=== PATIENT | female | born 1985 | race Two or more races ===

== ENCOUNTER 2023-05-19 21:51 | Emergency (ER) | payer MEDICAID, OTHER ==
[~2023-05-19] VITALS: Ht 154.9 cm; Wt 118.1 kg
[2023-05-19 22:15] VITALS: BP 150/98; PULSE 98; RESP 20; TEMP 98.4; O2SAT 95
== END 2023-05-20 04:27 | disposition home or self-care (01) ==
LOC: ER 21:51
DX: R04.0 Epistaxis (principal)

== ENCOUNTER 2023-05-23 09:15 | Emergency (ER) | payer MEDICAID ==
[~2023-05-23] VITALS: Ht 154.9 cm; Wt 121.0 kg
[2023-05-23 10:34] VITALS: BP 143/98; PULSE 100; RESP 18; TEMP 97.8; O2SAT 98
== END 2023-05-23 11:23 | disposition home or self-care (01) ==
LOC: ER 09:15
DX: R04.0 Epistaxis (principal)

== ENCOUNTER 2024-10-16 15:43 | Inpatient (IN) | payer MEDICAID ==
[~2024-10-16] VITALS: Ht 154.9 cm; Wt 105.3 kg
--- NOTE | 2024-10-16 16:16 | ED.PDOC ---
GI ASSESSMENT HPI Comments 38 y.o female presents to the ED for a chief complaint of RUQ pain. Patient reports a 4 day history of constipation about a week ago with diffused abdominal pain, states she took enemas which alleviated her constipation and is now passing minimal stool. Patient states pain however is now localized to the RUQ, described as sharp, non radiating and worse on palpation. Patient denies any nausea, vomiting, fever, chills, hematuria, bloody stool, dysuria. She denies any medical history or recent abdominal surgeries. 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 OPERATOR SEATING History Family History Family History: Reviewed,noncontributory to illness, No family hx of Cancer, No family hx of DM, No family hx of Heart tyrone, No family hx of HTN, No family hx ofKidney tyrone, No family hx of Liver tyrone, No family hx of Lung tyrone, No family hx of Stroke Social History Smoker: Non-Smoker Alcohol: Denies ETOH Use Drugs: Denies Drug Use Lives In: Home Constitutional: denies: chills, diaphoresis, fatigue, fever, malaise, sweats, weakness, others EENTM: denies: blurred vision, double vision, ear bleeding, ear discharge, ear drainage, ear pain, ear ringing, eye pain, eye redness, hearing loss, mouth pain, mouth swelling, nasal discharge, nose bleeding, nose congestion, nose pain, photophobia, tearing, throat pain, throat swelling, voice changes, others Respiratory: denies: cough, hemoptysis, orthopnea, SOB at rest, shortness of breath, SOB with excertion, stridor, wheezing, others Cardiovascular: denies: chest pain, dizzy spells, diaphoresis, Dyspnea on exertion, edema, irregular heart beat, left arm pain, lightheadedness, palpitations, PND, syncope, others Gastrointestinal: reports: abdominal pain, constipated; denies: abdomen distended, blood streaked bowels, diarrhea, dysphagia, difficulty swallowing, hematemesis, melena, nausea, poor appetite, poor fluid intake, rectal bleeding, rectal pain, vomiting, others Genitourinary: denies: abnormal vagina bleeding, burning, dyspareunia, dysuria, flank pain, frequency, hematuria, incontinence, pain, , vagina discharge, urgency, others Neurological: denies: dizziness, fainting, headache, left sided numbness, left sided weakness, numbness, paresthesia, pre-existing deficit, right sided numbness, right sided weakness, seizure, speech problems, tingling, tremors, weakness, others Musculoskeletal: denies: back pain, gout, joint pain, joint swelling, muscle pain, muscle stiffness, neck pain, others Integumetry: denies: bruises, change in color, change in hair/nails, dryness, laceration, lesions, lumps, rash, wounds, others Allergic/Immunocompromised: denies: Difficulty Healing, Frequent Infections, Hives, Itching, others Hematologic/Lymphatic: denies: anemia, blood clots, easy bleeding, easy bruising, swollen glands, others Endocrine: denies: excessive hunger, excessive sweating, excessive thirst, excessive urination, flushing, intolerance to cold, intolerance to heat, unexplained weight gain, unexplained weight loss, others Psychiatric: denies: anxiety, bipolar disorder, depression, hopeless, panic disorder, schizophrenia, sleepless, suicidal, others All Other Systems: Reviewed and Negative Physical Exam General Appearance: Moderate Distress HEENT: Normal ENT Inspection, Pharynx Normal, TMs Normal Neck: Full Range of Motion, Non-Tender, Normal, Normal Inspection Respiratory: Chest Non-Tender, Lungs Clear, No Accessory Muscle Use, No Respiratory Distress, Normal Breath Sounds Cardiovascular: No Edema, No JVD, No Murmur, No Gallop, Normal Peripheral Pulses, Regular Rate/Rhythm Breast Exam: Deferred Gastrointestinal: No Organomegaly, Non Tender, No Pulsatile Mass, Normal Bowel Sounds, Soft Genitalia: Deferred Pelvic: Deferred Rectal: Deferred Extremities: No calf tenderness, Normal capillary refill, Normal inspection, Normal range of motion, Non-tender, No pedal edema Musculoskeletal : Apperance: Normal Neurologic: Alert, final dressing cutter II-XII nml as Tested, No Motor Deficits, Normal Affect, Normal Mood, No Sensory Deficits Cerebellar Function: Normal Reflexes: Normal Skin: Dry, Normal Color, Warm Peripheral Pulses: 3+ Radial (R), 3+ Radial (L) Lymphatic: No Adenopathy Was a procedure done? Was a procedure done?: No GI differential Dx Differential Diagnosis: Cholecystitis, Constipation, Diverticular disease, Esophagitis, Gastritis/PUD, Gastroenteritis, Inflammatory BD, Electrolyte Imbalance, Viral X-Ray, Labs, Meds, VS Vital Signs Date Time Temp Pulse Resp B/P (MAP) Pulse Ox O2 Delivery O2 Flow Rate FiO2 10/16/24 16:56 98.8 115 16 115/66 (82) 98 98.8 Lab Test 10/16/24 16:22 Range/Units White Blood Count 23.9 H 4.4-10.8 10^3/uL Red Blood Count 4.12 4.0-5.20 10^6/uL Hemoglobin 13.1 12.2-16.2 g/dL Hematocrit 38.7 36.0-46.0 % Mean Corpuscular Volume 93.9 80.0-100.0 fL Mean Corpuscular Hemoglobin 31.8 28.0-32.0 pg Mean Corpuscular Hemoglobin Concent 33.8 32.0-36.0 g/dL Red Cell Distribution Width 14.0 11.8-14.3 % Platelet Count 408 140-450 10^3/uL Mean Platelet Volume 8.3 6.9-10.8 fL Neutrophils (%) (Auto) 82.5 H 37.0-80.0 % Lymphocytes (%) (Auto) 9.2 L 10.0-50.0 % Monocytes (%) (Auto) 7.7 0.0-12.0 % Eosinophils (%) (Auto) 0.2 0.0-7.0 % Basophils (%) (Auto) 0.4 0.0-2.0 % Neutrophils # (Auto) 19.7 H 1.6-8.6 10 ^3/uL Lymphocytes # (Auto) 2.2 0.4-5.4 10 ^3/uL Monocytes # (Auto) 1.8 H 0-1.3 10 ^3/uL Eosinophils # (Auto) 0 0-0.8 10 ^3/uL Basophils # (Auto) 0.1 0-0.2 10 ^3/uL Nucleated Red Blood Cells 0.0 % Sodium Level 138 136-145 mmol/L Potassium Level 3.5 3.5-5.1 mmol/L Chloride Level 104 98-107 mmol/L Carbon Dioxide Level 22 20-31 mmol/L Anion Gap 12 5-15 Blood Urea Nitrogen 9 9-23 mg/dL Creatinine 0.64 0.550-1.02 mg/dL Glomerular Filtration Rate Calc 117 >90 mL/min BUN/Creatinine Ratio 14.1 10.0-20.0 Serum Glucose 101 74-106 mg/dL Calcium Level 9.9 8.7-10.4 mg/dL Patient alert. Complaining of abdominal discomfort. Abdomen is soft nontender. Vitals stable. Ambulating. No sign of distress. No sepsis. No leg swelling. No chest pain. No nausea vomiting. Possible sepsis. WBC elevated. Establish intravenous access. Was given fluids. Was given Rocephin. Was given Flagyl. Explained to the patient. Continue monitoring. Time of 1ST Reevaluation: 16:16 Reevaluation 1ST: Improved Patient Education/Counseling: Diagnosis, Treatment, Prognosis Family Education/Counseling: No Family Present Departure 1 Departure Time of Disposition: 16:20 Impression: Primary Impression: Sepsis, unspecified organism Qualified Codes: A41.9 - Sepsis, unspecified organism Additional Impression: Acute abdominal pain Disposition: ADMITTED INPATIENT Admit to: Med Surg Condition: Guarded Critical Care Note Critical Care Time?: No Stability Stability form required: No Heart Score Heart Score: Heart Score Response (Comments) Value History N/A 0 EKG N/A 0 Age N/A 0 Risk Factors N/A 0 Troponin N/A 0 Total 0 I personally scribed for ISAAC PIZARRO MD ([email or web address]) on 10/16/24 at 16:16. Electronically submitted by Wendy Colbert ([facility]). ISAAC PIZARRO MD Oct 16, 2024 16:16
[2024-10-16 16:35] LABS: Basophils # (auto) 0.1 10 ^3/uL (0-0.2); Basophils % (auto) 0.4 % (0.0-2.0); Eosinophils # (auto) 0 10 ^3/uL (0-0.8); Eosinophils % (auto) 0.2 % (0.0-7.0); Hematocrit 38.7 % (36.0-46.0); Hemoglobin 13.1 g/dL (12.2-16.2); Lymphocytes # (auto) 2.2 10 ^3/uL (0.4-5.4); Lymphocytes % (auto) 9.2 % (10.0-50.0); Mean Corpuscular Hemoglobin 31.8 pg (28.0-32.0); Mean Corpuscular Hgb Conc. 33.8 g/dL (32.0-36.0); Mean Corpuscular Volume 93.9 fL (80.0-100.0); Monocytes # (auto) 1.8 10 ^3/uL (0-1.3); Monocytes % (auto) 7.7 % (0.0-12.0); Neutrophils # (auto) 19.7 10 ^3/uL (1.6-8.6); Neutrophils % (auto) 82.5 % (37.0-80.0); Platelet Count (auto) 408 10^3/uL (140-450); Red Blood Cells 4.12 10^6/uL (4.0-5.20); White Blood Cell 23.9 10^3/uL (4.4-10.8)
[2024-10-16 16:45] LABS: Anion Gap 12 (5-15); Carbon Dioxide 22 mmol/L (20-31); Chloride 104 mmol/L (98-107); Sodium 138 mmol/L (136-145)
[2024-10-16 16:46] LABS: Calcium 9.9 mg/dL (8.7-10.4); Potassium 3.5 mmol/L (3.5-5.1)
[2024-10-16 16:51] LABS: BUN/Creatinine Ratio 14.1 (10.0-20.0); Blood Urea Nitrogen 9 mg/dL (9-23); Glucose 101 mg/dL (74-106)
[2024-10-16] MEDS: SODIUM CHLORIDE 0.9% 1,000 ML IV ONE ×2 (17:50→17:57)
[2024-10-16] MEDS: cefTRIAXone 1GM/50ML D5W 50 ML IV ONE (18:21)
[2024-10-16 18:49] LABS: Urine Amorphous Crystal FEW /hpf (None Seen); Urine Bacteria FEW /hpf (None Seen); Urine Blood Negative /uL (Negative); Urine Clarity Turbid (Clear); Urine Color Colorless (Yellow); Urine Protein, UAD Negative (Negative); Urine Specific Gravity 1.004 (1.001-1.035); Urine Squamous Epithelial Cell FEW /hpf (<5); Urine Urobilinogen Normal (Negative); Urine WBC 14 /HPF (0-5)
[2024-10-16] MEDS: metroNIDAZOLE 500MG/100ML 100 ML IV ONE (19:04)
--- NOTE | 2024-10-16 20:04 | DVH ---
CLINICAL HISTORY: appy TECHNIQUE: CT of the abdomen and pelvis was performed without intravenous contrast. This exam was per formed according to our departmental dose optimization program. Up-to-date CT equipment and radiation dose reduction techniques are utilized as appropriate. CTDI: 25.59 DLP: 1305.15 WID: COMPARISON: None FINDINGS: Lower Thorax: Unremarkable. Liver and Biliary system: Hepatomegaly with the right lobe of the liver measuring 21 cm craniocaudal. Otherwise unremarkable. Spleen: Unremarkable. Adrenal Glands and Kidneys: Unremarkable. Pancreas and Retroperitoneum: Mild Pancreatic atrophy. No retroperitoneal lymphadenopathy. Aorta and Major Vessels: Aortoiliac vessels are normal in caliber with trace calcified atheroscleroti c plaque. Bowel, Mesentery and Peritoneal space: Normal caliber small and large bowel. There is a multiloculate d fluid and gas collection in the right lower quadrant measuring at least 8.3 x 8.5 x 10.3 cm on seri es 2, image 58 and coronal image 58. There is soft tissue stranding surrounding this loculated fluid collection in the right lower quadrant. There is mild wall thickening of the ascending colon. There i s no free intraperitoneal air. Pelvis: There is an IUD in the uterus which appears low-lying. There is a large multiloculated cystic mass which appears to be contiguous with the right ovary with the more central portion of the cystic mass measuring 15.7 x 11.9 cm on series 2, image 54. Grossly normal left ovary. Urinary bladder is m ildly distended. There is no pelvic lymphadenopathy. Abdominal wall and Osseous Structures: Grade 1 anterolisthesis at L5-S1 with bilateral L5 spondylolys is. Minor lower thoracic and lumbar spondylosis. No destructive osseous lesion. IMPRESSION: 1. Multiloculated fluid and gas collection in the right lower quadrant most likely an abscess, favore d to be a complication of appendicitis. No generalized free intraperitoneal air. 2. Large cystic mass which appears contiguous with the right ovary. It is possible that this could al so be an additional abscess. Short-term follow-up CT recommended after appropriate course of therapy for the right lower quadrant abscess. If this finding persists, OBGYN surgical consultation recomme nded. 3. Mild hepatomegaly. 4. IUD in the uterus appears malpositioned/ low-lying.
[2024-10-16] MEDS ORDERED: ACETAMINOPHEN 325 MG TAB PO PRN (21:45)
[2024-10-16] MEDS: PIPERACILLIN-TAZO 4.5GM 100 ML IV SCH (22:15)
[2024-10-16 22:17] VITALS: TEMP 98.4
[2024-10-16 22:19] VITALS: PULSE 105; RESP 15; O2SAT 98
[2024-10-16 22:22] LABS: Triglycerides 77 mg/dL (< 150)
[2024-10-16 22:23] LABS: LDL Cholesterol 90 mg/dL (< 100)
[2024-10-16 22:24] LABS: Cholesterol 136 mg/dL (< 200)
[2024-10-16 22:25] LABS: HDL Cholesterol 26 mg/dL (40-59)
--- NOTE | 2024-10-16 22:26 | DVHINCON2 ---
Consultation - Surgical Date Seen: Oct 16, 2024 Referring Physician Reason for Consultation abd pain, possible ruptured appendicitis History of Present Illness History of Present Illness rlq and ruq abd pain, constipation, naiusea; took enema w minor relief but pain returned Past Medical/Surgical History Past Medical/Surgical History none Family and Social History Family and Social History no tob, etoh, drugs no fam hx of cancer Allergies and medications Allergies: Coded Allergies: NO KNOWN ALLERGIES (Unverified , 05/20/23) Review of systems Review of Systems: HEENT:Normal, CVS:Normal, RESPIRATORY:Normal, GI:Abnormal (abd pain, con stipation), :Normal, MSK:Normal, NEURO:Normal Examination Vital signs Vital Signs Date Time Temp Pulse Resp B/P (MAP) Pulse Ox O2 Delivery O2 Flow Rate FiO2 10/16/24 20:25 98.9 100 17 135/79 (97) 99 98.9 10/16/24 18:15 Room Air Laboratory Labs Test 10/16/24 18:41 10/16/24 17:27 10/16/24 16:22 Range/Units Urine Color Colorless Yellow Urine Clarity Turbid H Clear Urine pH 6.0 5.0-9.0 Urine Specific [place] 1.004 1.001-1.035 Urine Protein Negative Negative Urine Ketones 1+ H Negative Urine Blood Negative Negative /uL Urine Nitrite Negative Negative Urine Bilirubin Negative Negative Urine Urobilinogen Normal Negative mg/dL Urine Leukocyte Esterase 2+ Negative /uL Urine RBC 3 0 - 4 /hpf Urine Microscopic WBC 14 H 0-5 /HPF Urine Squamous Epithelial Cells Few <5 /hpf Urine Amorphous Crystals Few None Seen /hpf Urine Bacteria Few H None Seen /hpf Urine Glucose Normal Normal mg/dL Urine Test Negative Negative Lactic Acid Level 1.0 0.4-2.0 mmol/L White Blood Count 23.9 H 4.4-10.8 10^3/uL Red Blood Count 4.12 4.0-5.20 10^6/uL Hemoglobin 13.1 12.2-16.2 g/dL Hematocrit 38.7 36.0-46.0 % Mean Corpuscular Volume 93.9 80.0-100.0 fL Mean Corpuscular Hemoglobin 31.8 28.0-32.0 pg Mean Corpuscular Hemoglobin Concent 33.8 32.0-36.0 g/dL Red Cell Distribution Width 14.0 11.8-14.3 % Platelet Count 408 140-450 10^3/uL Mean Platelet Volume 8.3 6.9-10.8 fL Neutrophils (%) (Auto) 82.5 H 37.0-80.0 % Lymphocytes (%) (Auto) 9.2 L 10.0-50.0 % Monocytes (%) (Auto) 7.7 0.0-12.0 % Eosinophils (%) (Auto) 0.2 0.0-7.0 % Basophils (%) (Auto) 0.4 0.0-2.0 % Neutrophils # (Auto) 19.7 H 1.6-8.6 10 ^3/uL Lymphocytes # (Auto) 2.2 0.4-5.4 10 ^3/uL Monocytes # (Auto) 1.8 H 0-1.3 10 ^3/uL Eosinophils # (Auto) 0 0-0.8 10 ^3/uL Basophils # (Auto) 0.1 0-0.2 10 ^3/uL Nucleated Red Blood Cells 0.0 % Sodium Level 138 136-145 mmol/L Potassium Level 3.5 3.5-5.1 mmol/L Chloride Level 104 98-107 mmol/L Carbon Dioxide Level 22 20-31 mmol/L Anion Gap 12 5-15 Blood Urea Nitrogen 9 9-23 mg/dL Creatinine 0.64 0.550-1.02 mg/dL Glomerular Filtration Rate Calc 117 >90 mL/min BUN/Creatinine Ratio 14.1 10.0-20.0 Serum Glucose 101 74-106 mg/dL Calcium Level 9.9 8.7-10.4 mg/dL Triglycerides Level 77 < 150 mg/dL Cholesterol Level 136 < 200 mg/dL LDL Cholesterol 90 < 100 mg/dL HDL Cholesterol 26 L 40-59 mg/dL Examination: GENERAL:Normal, HEENT:Normal, NECK:Normal, LUNGS:Normal, CVS:Normal, ABDOMEN:Normal, MSK:Normal, SKIN:Normal, NEURO:Normal Problem List/Assessment/Plan Problems: (1) Ovarian cystic mass (2) Perforated appendicitis (3) Acute abdominal pain (4) Sepsis, unspecified organism Assessment and Plan 38f w abd pain, nausea and constipation wbc 24, low grade fever, tachycardia ct shows suspected perforated appendix w adjacent abscess and large ovarian space occupying cystic mass off unknown origin, but CT done w/o IV contrast making it a suboptimal study recommend CT w IV cont for ongoing w/u recommend obgyn consult will discuss w IR patti am for IR drainage vs surgery, will need obgyn input prior Laboratory Tests Test 10/16/24 16:22 10/16/24 17:27 10/16/24 18:41 10/17/24 05:39 Range/Units White Blood Count 23.9 H 22.2 H 4.4-10.8 10^3/uL Red Blood Count 4.12 3.64 L 4.0-5.20 10^6/uL Hemoglobin 13.1 11.7 L 12.2-16.2 g/dL Hematocrit 38.7 34.1 #L 36.0-46.0 % Mean Corpuscular Volume 93.9 93.7 80.0-100.0 fL Mean Corpuscular Hemoglobin 31.8 32.1 H 28.0-32.0 pg Mean Corpuscular Hemoglobin Concent 33.8 34.3 32.0-36.0 g/dL Red Cell Distribution Width 14.0 13.8 11.8-14.3 % Platelet Count 408 373 140-450 10^3/uL Mean Platelet Volume 8.3 8.4 6.9-10.8 fL Neutrophils (%) (Auto) 82.5 H 82.3 H 37.0-80.0 % Lymphocytes (%) (Auto) 9.2 L 8.3 L 10.0-50.0 % Monocytes (%) (Auto) 7.7 8.9 0.0-12.0 % Eosinophils (%) (Auto) 0.2 0.3 0.0-7.0 % Basophils (%) (Auto) 0.4 0.2 0.0-2.0 % Neutrophils # (Auto) 19.7 H 18.2 H 1.6-8.6 10 ^3/uL Lymphocytes # (Auto) 2.2 1.8 0.4-5.4 10 ^3/uL Monocytes # (Auto) 1.8 H 2.0 H 0-1.3 10 ^3/uL Eosinophils # (Auto) 0 0.1 0-0.8 10 ^3/uL Basophils # (Auto) 0.1 0.1 0-0.2 10 ^3/uL Nucleated Red Blood Cells 0.0 0.0 % Sodium Level 138 136-145 mmol/L Potassium Level 3.5 3.5-5.1 mmol/L Chloride Level 104 98-107 mmol/L Carbon Dioxide Level 22 20-31 mmol/L Anion Gap 12 5-15 Blood Urea Nitrogen 9 9-23 mg/dL Creatinine 0.64 0.550-1.02 mg/dL Glomerular Filtration Rate Calc 117 >90 mL/min BUN/Creatinine Ratio 14.1 10.0-20.0 Serum Glucose 101 74-106 mg/dL Hemoglobin A1c 5.0 <5.7 % A1C Calcium Level 9.9 8.7-10.4 mg/dL Triglycerides Level 77 < 150 mg/dL Cholesterol Level 136 < 200 mg/dL LDL Cholesterol 90 < 100 mg/dL HDL Cholesterol 26 L 40-59 mg/dL Lactic Acid Level 1.0 0.4-2.0 mmol/L Urine Color Colorless Yellow Urine Clarity Turbid H Clear Urine pH 6.0 5.0-9.0 Urine Specific [place] 1.004 1.001-1.035 Urine Protein Negative Negative Urine Ketones 1+ H Negative Urine Blood Negative Negative /uL Urine Nitrite Negative Negative Urine Bilirubin Negative Negative Urine Urobilinogen Normal Negative mg/dL Urine Leukocyte Esterase 2+ Negative /uL Urine RBC 3 0 - 4 /hpf Urine Microscopic WBC 14 H 0-5 /HPF Urine Squamous Epithelial Cells Few <5 /hpf Urine Amorphous Crystals Few None Seen /hpf Urine Bacteria Few H None Seen /hpf Urine Glucose Normal Normal mg/dL Urine Test Negative Negative Urine Opiates Screen Neg NEGATIVE Urine Fentanyl Screen Neg NEGATIVE Urine Barbiturates Screen Neg NEGATIVE Urine Phencyclidine Screen Neg NEGATIVE Urine Amphetamines Screen Neg NEGATIVE Urine Benzodiazepines Screen Neg NEGATIVE Urine Cocaine Screen Neg NEGATIVE Urine Cannabinoids Screen Pos NEGATIVE Vital Signs Date Time Temp Pulse Resp B/P (MAP) Pulse Ox O2 Delivery O2 Flow Rate FiO2 10/17/24 06:11 94 15 127/58 (81) 97 10/16/24 22:19 Room Air* 0 21 10/16/24 22:17 98.4 98.4 Plan discussed with Plan discussed with: Other (residenct physician) Visit Coding Surgery Date of Service if different f: Oct 16, 2024 Billing Provider: MARISELA PATEL MD Surgery Visit Codes: 53686 - INP CONSULT <40 MIN MARISELA PATEL MD Oct 16, 2024 22:26
[2024-10-16 22:29] LABS: Cannabinoid Screen, Urine Pos (NEGATIVE)
[2024-10-16 22:31] LABS: Amphetamine Screen, Urine Neg (NEGATIVE); Barbiturate Scree,Urine Neg (NEGATIVE); Benzodiazephine Screen, Urine Neg (NEGATIVE); Cocaine Screen, Urine Neg (NEGATIVE); Opiate Scree,Urine Neg (NEGATIVE); Phencyclidine Screen, Urine Neg (NEGATIVE)
[2024-10-16] MEDS: OMNIPAQUE 12mg/ml 500ml ORAL SOLUTION PO ONE (22:33)
--- NOTE | 2024-10-16 22:47 | DVHCONRES ---
Date Seen: Oct 16, 2024 Resident Creating Document: ELIAZAR BEACH RESIDENT Referring Physician Dr. Coello Reason for Consultation Large cystic mass and appendiceal abscess History of Present Illness This is a 38-year-old female with no past medical history of relevance who takes no medications at home. The patient presented to the ED with chief complaint of acute right lower quadrant abdominal tenderness. The patient stated that all her symptoms started on September 29, 2024 when she started experiencing diffuse abdominal tenderness associated with constipation. Patient also admits chills at that time and started taking milk of magnesium and enemas which started improving constipation and the severity of the pain was mild at that time. The patient states that the pain has been constant in nature but varies in intensity throughout the day. The patient is currently described a sharp/cramping pain ra nia as 5/10 on the pain scale but gets worse until an 8/10 on the pain scale. The patient denies fever, chest pain, shortness of breath, dysuria or any other symptoms at this time. Initial labs showed a WBC of 23.9, BNP was grossly unremarkable and urinalysis came back positive suggesting UTI. Initial CT of the abdomen without contrast showed a multiloculated fluid and gas collection in the right lower quadrant with an abscess which could be possibly associated with complicated appendicitis, there was no generalized free intraperitoneal air. There is also a large cystic mass which appears contiguous with the right ovary which could represent an additional abscess. We will start the patient on IV Zosyn and fluids, place the patient NPO. We will consult surgery and OBGYN. We will admit the patient for further assessment and management. Past Medical History none Past Surgical History none Family History denies Social History denies alcohol, drugs or smoking Allergies: Coded Allergies: NO KNOWN ALLERGIES (Unverified , 05/20/23) Review of Systems ROS Constitutional: Denies weight loss, fever and chills. HEENT: Denies changes in vision and hearing. Respiratory: Denies shortness of breath and cough Cardiovascular: Denies chest discomfort or palpitations GI: Reports right lower quadrant abdominal tenderness associated with constipation. : Denies dysuria and urinary frequency. Musculoskeletal: Denies myalgias and joint pain Skin: Denies rash and pruritus. Neurological: Denies dizziness, headache, vision or hearing problems Vital Signs Vital Signs Date Time Temp Pulse Resp B/P (MAP) Pulse Ox O2 Delivery O2 Flow Rate FiO2 10/16/24 20:25 98.9 100 17 135/79 (97) 99 98.9 10/16/24 18:15 Room Air Labs/Diagnostic Data Labs Test 10/16/24 18:41 10/16/24 17:27 10/16/24 16:22 Range/Units Urine Color Colorless Yellow Urine Clarity Turbid H Clear Urine pH 6.0 5.0-9.0 Urine Specific [place] 1.004 1.001-1.035 Urine Protein Negative Negative Urine Ketones 1+ H Negative Urine Blood Negative Negative /uL Urine Nitrite Negative Negative Urine Bilirubin Negative Negative Urine Urobilinogen Normal Negative mg/dL Urine Leukocyte Esterase 2+ Negative /uL Urine RBC 3 0 - 4 /hpf Urine Microscopic WBC 14 H 0-5 /HPF Urine Squamous Epithelial Cells Few <5 /hpf Urine Amorphous Crystals Few None Seen /hpf Urine Bacteria Few H None Seen /hpf Urine Glucose Normal Normal mg/dL Urine Test Negative Negative Urine Opiates Screen Neg NEGATIVE Urine Fentanyl Screen Neg NEGATIVE Urine Barbiturates Screen Neg NEGATIVE Urine Phencyclidine Screen Neg NEGATIVE Urine Amphetamines Screen Neg NEGATIVE Urine Benzodiazepines Screen Neg NEGATIVE Urine Cocaine Screen Neg NEGATIVE Urine Cannabinoids Screen Pos NEGATIVE Lactic Acid Level 1.0 0.4-2.0 mmol/L White Blood Count 23.9 H 4.4-10.8 10^3/uL Red Blood Count 4.12 4.0-5.20 10^6/uL Hemoglobin 13.1 12.2-16.2 g/dL Hematocrit 38.7 36.0-46.0 % Mean Corpuscular Volume 93.9 80.0-100.0 fL Mean Corpuscular Hemoglobin 31.8 28.0-32.0 pg Mean Corpuscular Hemoglobin Concent 33.8 32.0-36.0 g/dL Red Cell Distribution Width 14.0 11.8-14.3 % Platelet Count 408 140-450 10^3/uL Mean Platelet Volume 8.3 6.9-10.8 fL Neutrophils (%) (Auto) 82.5 H 37.0-80.0 % Lymphocytes (%) (Auto) 9.2 L 10.0-50.0 % Monocytes (%) (Auto) 7.7 0.0-12.0 % Eosinophils (%) (Auto) 0.2 0.0-7.0 % Basophils (%) (Auto) 0.4 0.0-2.0 % Neutrophils # (Auto) 19.7 H 1.6-8.6 10 ^3/uL Lymphocytes # (Auto) 2.2 0.4-5.4 10 ^3/uL Monocytes # (Auto) 1.8 H 0-1.3 10 ^3/uL Eosinophils # (Auto) 0 0-0.8 10 ^3/uL Basophils # (Auto) 0.1 0-0.2 10 ^3/uL Nucleated Red Blood Cells 0.0 % Sodium Level 138 136-145 mmol/L Potassium Level 3.5 3.5-5.1 mmol/L Chloride Level 104 98-107 mmol/L Carbon Dioxide Level 22 20-31 mmol/L Anion Gap 12 5-15 Blood Urea Nitrogen 9 9-23 mg/dL Creatinine 0.64 0.550-1.02 mg/dL Glomerular Filtration Rate Calc 117 >90 mL/min BUN/Creatinine Ratio 14.1 10.0-20.0 Serum Glucose 101 74-106 mg/dL Hemoglobin A1c 5.0 <5.7 % A1C Calcium Level 9.9 8.7-10.4 mg/dL Triglycerides Level 77 < 150 mg/dL Cholesterol Level 136 < 200 mg/dL LDL Cholesterol 90 < 100 mg/dL HDL Cholesterol 26 L 40-59 mg/dL Assessment Assessment/Plan Acute right lower quadrant abdominal tenderness likely due to appendiceal abscess Possible complicated appendicitis with abscess formation Large cystic mass likely contiguous with the right ovary Acute constipation Plan -Gave IV zosyn, IV fluids -CT abdomen and pelvis revealing a multiloculated fluid and gas collection in the right lower quadrant most likely due to an abscess possibly complication of appendicitis. There was also a large cystic mass which appears contiguous with the right ovary -OBGYN recommended transfer to higher level of care for cystic mass management Plan discussed with: Patient ELIAZAR BEACH RESIDENT Oct 16, 2024 22:47
[2024-10-16] MEDS: IOHEXOL 300 MG/ML 100ML BOTTLE IJ ONE (23:24)
[2024-10-17] MEDS: SODIUM CHLORIDE 0.9% 1,000 ML IV SCH
--- NOTE | 2024-10-17 00:03 | DVH ---
Exam: CT CT ABD PELVIS W CON-ORAL IV History: large cystic mass and poss appendiceal abscess COMPARISON: CT abdomen and pelvis from earlier today. Technique: Multidetector spiral CT of the abdomen and pelvis was performed from lung bases to pubic s ymphysis. Intravenous contrast was administered during this examination. Portal venous imaging was obtained. Axial, coronal and sagittal multiplanar reformats were performed by the technologist on a separate workstation. Radiation Dose : 1. Abdomen/Pelvis: CTDIvol 25 mGy, DLP 1544 mGy*cm. CONTRAST: Type of contrast: Omnipaque 350 Contrast injected: 100 ml Findings: Lung Bases: No acute or significant lung base finding. Normal heart size. No pleural or pericardial effusion. Liver: Hepatomegaly measuring up to 21 cm. Gallbladder and Biliary Tree: Unremarkable Spleen: Unremarkable Pancreas: The pancreas is normal in appearance without focal lesions or abnormal enhancement. Adrenal Glands: Unremarkable Kidneys: No hydronephrosis. Bladder: Unremarkable Bowel: The stomach is grossly normal in appearance. Small bowel and colon are normal in caliber and d istribution. The appendix is not clearly identified, possibly ruptured due to adjacent abscess. Ascites: Stable complex abscess in the right lower quadrant (periappendiceal region) which measures u p to 8.6 cm. Lymphadenopathy: No mesenteric, retroperitoneal or periportal lymphadenopathy. Abdominal Wall and Mesentery: Unremarkable. Vasculature: The visualized abdominal aorta is normal in size and caliber. Abdominal and pelvic vess els demonstrate normal enhancement. Pelvic Organs: Stable large cystic mass is seen adjacent to the right ovary which measures up to 17 c m. Stable IUD. Musculoskeletal: No aggressive focal bony lesions, acute fractures or dislocation. 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 Stable large cystic mass is seen adjacent to the right ovary which measures up to 17 cm 2. Stable complex abscess in the right lower quadrant (periappendiceal region )which measures up to 8 .6 cm. The appendix is not clearly identified and may be ruptured. 3. Overall, no significant interval change since prior CT from earlier today. Radiation optimization: All CT scans at this facility use at least one of these dose optimization jose j hniques: automated exposure control mA and/or kV adjustment per patient size (includes targeted exam s where dose is matched to clinical indication) or iterative reconstruction.
[2024-10-17 06:11] VITALS: BP 127/58; PULSE 94; RESP 15; O2SAT 97
[2024-10-17 06:38] LABS: Basophils # (auto) 0.1 10 ^3/uL (0-0.2); Basophils % (auto) 0.2 % (0.0-2.0); Eosinophils # (auto) 0.1 10 ^3/uL (0-0.8); Eosinophils % (auto) 0.3 % (0.0-7.0); Hematocrit 34.1 % (36.0-46.0); Hemoglobin 11.7 g/dL (12.2-16.2); Lymphocytes # (auto) 1.8 10 ^3/uL (0.4-5.4); Lymphocytes % (auto) 8.3 % (10.0-50.0); Mean Corpuscular Hemoglobin 32.1 pg (28.0-32.0); Mean Corpuscular Hgb Conc. 34.3 g/dL (32.0-36.0); Mean Corpuscular Volume 93.7 fL (80.0-100.0); Monocytes % (auto) 8.9 % (0.0-12.0); Neutrophils # (auto) 18.2 10 ^3/uL (1.6-8.6); Neutrophils % (auto) 82.3 % (37.0-80.0); Platelet Count (auto) 373 10^3/uL (140-450); Red Blood Cells 3.64 10^6/uL (4.0-5.20); Red Cell Distribution Width 13.8 % (11.8-14.3); White Blood Cell 22.2 10^3/uL (4.4-10.8)
== END 2024-10-17 06:45 | disposition left against medical advice (07) | DRG 720 ==
LOC: ER 15:53 → OVERFLOW 21:45
PROVIDERS: ADMIT Nurse Practitioner Acute Care; ATTEND Nurse Practitioner Acute Care
DX: A41.9 Sepsis, unspecified organism (principal); K35.33 Acute appendicitis with perforation, localized peritonitis, and gangrene, with abscess; Z53.29 Procedure and treatment not carried out because of patient's decision for other reasons; E78.5 Hyperlipidemia, unspecified; N83.201 Unspecified ovarian cyst, right side; K59.00 Constipation, unspecified; Z79.899 Other long term (current) drug therapy
CPT/HCPCS: 36415; 74176; 74177; 80048; 80061; 80307; 81001; 81025; 83036; 83605; 85025; 87040; 87086; 96365; G0378; J2543; J3490

== ENCOUNTER 2024-11-22 16:28 | Emergency (ER) | payer MEDICAID ==
[~2024-11-22] VITALS: Ht 177.8 cm; Wt 99.7 kg
[2024-11-22 17:30] VITALS: BP 118/74; PULSE 86; RESP 17; TEMP 98.1; O2SAT 99
--- NOTE | 2024-11-22 18:36 | ED.PDOC ---
History of Present Illness HPI Comments 39 year old female came to ER for tube replacement. Patient underwent appendectomy due to ruptured appendicitis with intraabd abscess at [facility] October 20. MURPHY drain was inserted and patient was discharged. Yesterday she noted that the sutures appeard to be loose, so she went to [facility] and the drain was re- secured with sutures. About 2 hours ago, patient states she noted that the black marker at the MURPHY drain appeared, indicating that it has moved, and that the drain stopped suctioning. No acute abdominal pain or fever noted. No fluid drainage from around the insertion site. Chief Complaint: Tube Replacement Time Seen by MD: 18:36 Primary Care Provider: SHANE Fonseca Notes: Nurses Notes Allergies: Coded Allergies: NO KNOWN ALLERGIES (Unverified , 05/20/23) Information Source: Patient Mode of Arrival: Ambulatory Severity: Moderate Timing: Hours Duration: Since onset Prehospital treatment: None Past Medical History PAST MEDICAL HISTORY: Denies Surgical History: Appendectomy SOFTWARE QUALITY TESTER History: No Pertinent SOFTWARE QUALITY TESTER History Family History Family History: Reviewed,noncontributory to illness, No family hx of Cancer, No family hx of DM, No family hx of Heart tyrone, No family hx of HTN, No family hx ofKidney tyrone, No family hx of Liver tyrone, No family hx of Lung tyrone, No family hx of Stroke Social History Smoker: Non-Smoker Alcohol: Denies ETOH Use Drugs: Denies Drug Use Lives In: Home Constitutional: denies: chills, diaphoresis, fatigue, fever, malaise, sweats, weakness, others EENTM: denies: blurred vision, double vision, ear bleeding, ear discharge, ear drainage, ear pain, ear ringing, eye pain, eye redness, hearing loss, mouth pain, mouth swelling, nasal discharge, nose bleeding, nose congestion, nose pain, photophobia, tearing, throat pain, throat swelling, voice changes, others Respiratory: denies: cough, hemoptysis, orthopnea, SOB at rest, shortness of breath, SOB with excertion, stridor, wheezing, others Cardiovascular: denies: chest pain, dizzy spells, diaphoresis, Dyspnea on exertion, edema, irregular heart beat, left arm pain, lightheadedness, palpit ations, PND, syncope, others Gastrointestinal: reports: abdominal pain (JP[facility]rain [facility]); denies: abdomen distended, blood streaked bowels, constipated, diarrhea, dysphagia, difficulty swallowing, hematemesis, melena, nausea, poor appetite, poor fluid intake, rectal bleeding, rectal pain, vomiting, others Genitourinary: denies: abnormal vagina bleeding, burning, dyspareunia, dysuria, flank pain, frequency, hematuria, incontinence, pain, , vagina discharge, urgency, others Neurological: denies: dizziness, fainting, headache, left sided numbness, left sided weakness, numbness, paresthesia, pre-existing deficit, right sided numbness, right sided weakness, seizure, speech problems, tingling, tremors, weakness, others Musculoskeletal: denies: back pain, gout, joint pain, joint swelling, muscle pain, muscle stiffness, neck pain, others Integumetry: denies: bruises, change in color, change in hair/nails, dryness, laceration, lesions, lumps, rash, wounds, others Allergic/Immunocompromised: denies: Difficulty Healing, Frequent Infections, Hives, Itching, others Hematologic/Lymphatic: denies: anemia, blood clots, easy bleeding, easy bruising, swollen glands, others Endocrine: denies: excessive hunger, excessive sweating, excessive thirst, excessive urination, flushing, intolerance to cold, intolerance to heat, unexplained weight gain, unexplained weight loss, others Psychiatric: denies: anxiety, bipolar disorder, depression, hopeless, panic disorder, schizophrenia, sleepless, suicidal, others Physical Exam General Appearance: No Apparent Distress, Obese HEENT: Other (Pupils and face symmetric. Moist mucous membranes.) Neck: Full Range of Motion, Normal Inspection Respiratory: No Accessory Muscle Use, No Respiratory Distress Cardiovascular: No Edema, No JVD, Regular Rate/Rhythm Breast Exam: Deferred Gastrointestinal: Non Tender, Soft, Other (MURPHY drain left lower quadrant appears partially dislodged. No leakage of fluid from around insertion site. No tenderness.) Genitalia: Deferred Pelvic: Deferred Rectal: Deferred Extremities: Normal inspection, Normal range of motion, Non-tender, No pedal edema Neurologic: Alert (Oriented x4), Normal Affect, Normal Mood, Other (Ambulatory) Cerebellar Function: NOT DONE Reflexes: NOT DONE Skin: Dry, Normal Color, Warm Lymphatic: NOT DONE Was a procedure done? Was a procedure done?: No Differential Dx Considerations may include: dislodged MURPHY drain, insertion site infection, among others X-Ray, Labs, Meds, VS Vital Signs Date Time Temp Pulse Resp B/P (MAP) Pulse Ox O2 Delivery O2 Flow Rate FiO2 11/22/24 17:30 98.1 86 17 118/74 (89) 99 98.1 X-Ray, Labs, Meds, VS Comment 39-year-old female status post MURPHY drain insertion post appendectomy presenting to hours after noticing the MURPHY drain has been partially dislodged Patient is not in any discomfort, vitals are unremarkable, and her condition does not appear critically emergent Patient was advised she should return to [place] where the surgery was done and where the drain was recently re secured for re-evaluation of the again dislodged drain. Patient stated she was comfortable going to [place] now. Time of 1ST Reevaluation: 18:40 Reevaluation 1ST: Unchanged Patient Education/Counseling: Diagnosis, Treatment Family Education/Counseling: No Family Present SEPSIS Sepsis Screen Date sepsis recognized/suspect: Nov 22, 2024 Time Sepsis recognized/suspect: 163 Recent Procedure: No On Antibiotic Therapy: No Respiratory Rate >20: No Heart Rate >90: No Temp<36 C (96.8 F) or >38.3 C: No SBP <90 or MAP <65 mmHG: No New Acute Mental Status Change: No Is the patient on CPAP, BIPAP,: No Vital Signs Date Time Temp Pulse Resp B/P (MAP) Pulse Ox O2 Delivery O2 Flow Rate FiO2 11/22/24 17:30 98.1 86 17 118/74 (89) 99 98.1 Departure 1 Departure Time of Disposition: 18:40 Impression: Primary Impression: Broken Kvng-Hurtado drain Qualified Codes: T85.698A - Other mechanical complication of other specified internal prosthetic devices, implants and grafts, initial encounter Disposition: HOME / SELF CARE / HOMELESS Condition: Stable Additional Instructions: Go to [place] now for re-evaluation of your partially dislodged Kvng-Hurtado drain. Discharged With: Relative Critical Care Note Critical Care Time?: No Stability Stability form required: No Heart Score Heart Score: Heart Score Response (Comments) Value History N/A 0 EKG N/A 0 Age N/A 0 Risk Factors N/A 0 Troponin N/A 0 Total 0 I personally scribed for BRE ABEBE MD ([email or web address]) on 11/22/24 at 18:36. Electronically submitted by Korey Levin ([facility]). BRE ABEBE MD Nov 22, 2024 18:36
== END 2024-11-22 20:33 | disposition home or self-care (01) ==
LOC: ER 16:28
DX: T85.698A Other mechanical complication of other specified internal prosthetic devices, implants and grafts, initial encounter (principal); Z90.49 Acquired absence of other specified parts of digestive tract; Y92.89 Other specified places as the place of occurrence of the external cause